=== PATIENT | male | born 1975 | race African-American/Black ===

== ENCOUNTER 2017-11-04 02:43 | Emergency (ER) | payer SELFPAY ==
[2017-11-04 02:48] VITALS: BP 136/82; PULSE 56; TEMP 98.3
[2017-11-04] MEDS ORDERED: PEN-VEE K500 MG PO (03:06)
[2017-11-04] MEDS ORDERED: NORCO 325 MG-51 TAB PO (03:06)
== END 2017-11-04 03:15 | disposition home or self-care (01) ==
LOC: COL.ER 02:43
DX: K02.9 Dental caries, unspecified (principal)

== ENCOUNTER 2018-06-04 09:52 | Emergency (ER) | payer OTHER ==
[~2018-06-04] VITALS: Ht 176 cm; Wt 90.9 kg
[~2018-06-04 09:52] MED LIST: NORCO 325 MG-51 TAB PO; PEN-VEE K500 MG PO
[2018-06-04 09:53] VITALS: BP 137/78; TEMP 97.5
[2018-06-04] MEDS ORDERED: PERCOCET 325 MG1 TA2 PO (10:35)
[2018-06-04 11:12] VITALS: PULSE 75
== END 2018-06-04 11:26 | disposition home or self-care (01) ==
LOC: COL.ER 09:52
DX: S82.832A Other fracture of upper and lower end of left fibula, initial encounter for closed fracture (principal); W00.0XXA Fall on same level due to ice and snow, initial encounter; X50.0XXA Overexertion from strenuous movement or load, initial encounter; Y92.410 Unspecified street and highway as the place of occurrence of the external cause
CPT/HCPCS: Q4045